=== PATIENT | male | born 1945 | race Caucasian/White ===

== ENCOUNTER 2018-09-23 09:03 | Emergency (ER) | payer MEDICARE, OTHER ==
[~2018-09-23 09:03] MED LIST: Iopamidol 370 76% 100 ML VIAL ONE
[2018-09-23 10:17] LABS: Band 3 % (5-11); Eosinophils 1 % (0-10); Hemoglobin 9.3 g/dL (14.0-18.0); Hypochromia SLIGHT = 6-15 cells (100X) (0-5/hpf); Lymphocytes 9 % (21-51); MDiff Complete? YES; Mean Corpuscular HGB CONC 33.4 g/dL (32.0-36.0); Mean Corpuscular Hemoglobin 29.9 pg (27.0-31.0); Mean Corpuscular Volume 89.4 fL (78.0-98.0); Mean Platelet Volume 6.7 fL (7.4-10.4); Monocytes 7 % (0-10); Neutrophil 80 % (42-75); PLT Morphology Comment Appears Adequate; Platelet Count 286 thou/uL (130-400); RBC Distribution Width 13.2 % (11.5-14.5); White Blood Cell (WBC) Count 20.2 thou/uL (4.8-10.8)
[2018-09-23 10:22] LABS: ALT (SGPT) 19 U/L (8-55); AST (SGOT) 23 U/L (5-34); Albumin 3.2 g/dL (3.4-4.8); Alkaline Phosphatase 70 U/L (40-150); Anion Gap 18 mmol/L (10-20); BUN (Urea Nitrogen) 22 mg/dL (8.4-25.7); Bilirubin, Total 0.7 mg/dL (0.2-1.2); CK (CPK) 36 U/L (30-200); Calc. Creatinine Clearance 0 mL/min (70-130); Calcium 8.2 mg/dL (7.8-10.44); Carbon Dioxide 19 mmol/L (23-31); Chloride 101 mmol/L (98-107); Estimated GFR-MDRD 37; Globulin 3.3 g/dL (2.4-3.5); Glucose 135 mg/dL (83-110); Protein, Total 6.5 g/dL (5.8-8.1); Sodium 134 mmol/L (136-145)
[2018-09-23] MEDS ORDERED: Sodium Chloride 0.9% 1,000 ML ONE (11:20)
--- NOTE | 2018-09-23 11:30 | CT ---
CTA CHEST: Technique: Multiple contiguous axial images were obtained through the chest following a pulmonary ang io protocol with multiplanar reconstruction and 3D post processing. Indications: Dyspnea. Shortness of breath. Correlation: Chest film 07-29-11. FINDINGS: Proximal pulmonary arteries are well opacified. There is evidence of an embolis in a segment of right lower lobe pulmonary artery. No other evidence of embolus identified. There is abnormal parenchymal opacity in the right suprahilar region extending peripherally into the right upper lobe. This density exhibits peribronchial cuffing and alveolar opacity peripherally. No d efinite mass is identified. This may represent inflammatory infiltrate and close follow up is recomme nded to ensure clearing. Lung phillips otherwise clear. IMPRESSION: 1. Evidence of small embolus in a segmental right lower lobe pulmonary artery. 2. Streaky opacities involving the right suprahilar region and extending into the right upper lobe po ssibly representing inflammatory infiltrate. Close follow up is recommended to ensure clearing. Under lying neoplasm not excluded. 3. Findings discussed with Dr. Edwards. POS: [facility]
[2018-09-23] MEDS ORDERED: Sodium Chloride 0.9% 100 ML ONE (12:06)
[2018-09-23] MEDS ORDERED: Piperacillin/Tazobactam 3.375 GM VIAL ONE (12:06)
[2018-09-23] MEDS ORDERED: Vancomycin HCl 500 MG VIAL ONE (12:43)
[2018-09-23] MEDS ORDERED: Sodium Chloride 0.9% 500 ML ONE (12:44)
[2018-09-23 13:09] LABS: Bilirubin Negative (Negative); Blood, Urine Moderate (Negative); Clarity Clear (Clear); Glucose, Urine (Dipstick) Negative (Negative); Leukocyte Large (Negative); Nitrite Negative (Negative); Protein, Urine (Dipstick) 100 mg/dL (Neg-Trace); Urobilinogen 0.2 mg/dL (0.2-1.0)
[2018-09-23 13:10] LABS: Bacteria/HPF Rare-Few HPF (None Seen); Other Microscopic Description NO; Squamous Epithelial 0-3 HPF (0-3)
== END 2018-09-23 13:52 | disposition short-term general hospital (02) ==
LOC: NAV ERS 09:03
DX: J18.1 Lobar pneumonia, unspecified organism (principal); I26.99 Other pulmonary embolism without acute cor pulmonale; I25.2 Old myocardial infarction; E78.5 Hyperlipidemia, unspecified; I10 Essential (primary) hypertension; F41.9 Anxiety disorder, unspecified; F32.9 Major depressive disorder, single episode, unspecified; Z79.899 Other long term (current) drug therapy; Z79.891 Long term (current) use of opiate analgesic
CPT/HCPCS: 71275; 80053; 81003; 81015; 82550; 83605; 83880; 84484; 85025; 87040; 93005; 96365; 96366; 96367; J1956; J2543; J3370; J7050

== ENCOUNTER 2019-03-02 10:42 | Emergency (ER) | payer MEDICARE ==
[2019-03-02 11:14] LABS: Bilirubin Negative (Negative); Blood, Urine Trace (Negative); Clarity Slightly Cloudy (Clear); Glucose, Urine (Dipstick) Negative (Negative); Leukocyte Large (Negative); Nitrite Negative (Negative); Protein, Urine (Dipstick) 100 mg/dL (Neg-Trace); Urobilinogen 0.2 mg/dL (0.2-1.0)
[2019-03-02 11:21] LABS: RBC/HPF 0-3 HPF (0-3)
[2019-03-02 11:22] LABS: Bacteria/HPF 2+ HPF (None Seen); Other Microscopic Description NO; Squamous Epithelial 0-3 HPF (0-3)
== END 2019-03-02 11:36 | disposition home or self-care (01) ==
LOC: NAV ERS 10:42
DX: N39.0 Urinary tract infection, site not specified (principal); E78.5 Hyperlipidemia, unspecified; I10 Essential (primary) hypertension; F32.9 Major depressive disorder, single episode, unspecified; F41.9 Anxiety disorder, unspecified; Z87.891 Personal history of nicotine dependence; Z79.899 Other long term (current) drug therapy; Z79.51 Long term (current) use of inhaled steroids
CPT/HCPCS: 81003; 81015; 87077; 87086; 87186; 99283

== ENCOUNTER 2020-12-11 16:39 | Emergency (ER) | payer MEDICARE ==
[2020-12-11] MEDS ORDERED: Lidocaine 1% (PF) 30 ML VIAL ONE (17:18)
== END 2020-12-11 18:07 | disposition home or self-care (01) ==
LOC: NAV ERS 16:39
DX: L02.415 Cutaneous abscess of right lower limb (principal); J30.9 Allergic rhinitis, unspecified; R21 Rash and other nonspecific skin eruption; E78.5 Hyperlipidemia, unspecified; E78.00 Pure hypercholesterolemia, unspecified; I10 Essential (primary) hypertension; Z87.891 Personal history of nicotine dependence
CPT/HCPCS: 10060; 87070; 87205; J2001